=== PATIENT | female | born 1990 | race Caucasian/White ===

== ENCOUNTER → 2017-09-27 | Outpatient (REF) ==
[2017-09-27 09:37] LABS: LDL CHOLESTEROL 67 mg/dl
== END ==
DX: Z02.9 Encounter for administrative examinations, unspecified (principal)

== ENCOUNTER → 2017-09-27 | Outpatient (CLI) | payer OTHER | LOC: LAB 08:10 | PROVIDERS: ATTEND Nurse Practitioner Family | DX: R79.9 Abnormal finding of blood chemistry, unspecified (principal); E04.1 Nontoxic single thyroid nodule; E55.9 Vitamin D deficiency, unspecified | CPT/HCPCS: 36415; 82306; 82607; 82728 ==